=== PATIENT | female | born 1975 | race Caucasian/White ===

== ENCOUNTER 2017-06-20 12:54 | Emergency (ER) | payer BC ==
[~2017-06-20] VITALS: Ht 154.9 cm; Wt 56.0 kg
[~2017-06-20 12:54] MED LIST: BENA25TA3 PO; FAMO20TA2 PO; MEDR4PAK PO; PRED20 PO; [UNRECOGNIZED DRUG - CODE] PO
[2017-06-20] MEDS ORDERED: IOHEXOL 350 MG/ML 10 ML VIAL (for RAD DIAG) IVCONTRAST ONE (12:55)
[2017-06-20 12:56] VITALS: BP 139/85; PULSE 82; RESP 18; TEMP 98.5; O2SAT 99
--- NOTE | 2017-06-20 13:50 | PD ---
HPI Chief Complaint: Pain: Acute or Chronic Time Seen by Provider: 13:10 Travel History International Travel<30 days: No Contact w/Intl Traveler<30days: No Traveled to known affect area: No History of Present Illness HPI 42-year-old female presents to emergency department complaining of right lower quadrant pain radiating to the front and rear aspect of the leg since Saturday. Patient describes the radiation of her pain to the front of the leg as "warmth" . Patient says the pain is 9 out of 10 without any alleviating or provocative factors. Patient denies fever or chills, nausea, vomiting, diarrhea. Patient states that her appetite has been decreased today because of the pain. States her last bowel movement was this morning and was normal. States her last menstrual period was 2 years ago after endometrial ablation was performed. Patient denies back pain or urinary discomfort. Denies vaginal discharge. Patient states that she has had this pain for approximately 1 year and is usually resolved with Advil. Patient states that Advil has not been relieving her pain is concerned about something more serious. Patient says that she saw her primary care 1 year ago and she referred her to an dictating machine transcriber. States that an ultrasound was performed and was found to have an ovarian cyst. Patient denies chronic medical issues or medication use. PFSH Past Medical History LMP: n/a Social History Alcohol Use: No (RARE) Tobacco Use: No Substance Use: No Allergies-Medications (Allergen,Severity, Reaction): Coded Allergies: No Known Allergies (Verified Allergy, Unknown, 06/20/17) Reported Meds & Prescriptions Reported Meds & Active Scripts Active Benadryl Allergy (Diphenhydramine HCl) 25 Mg Tab 25 Mg PO Q6H 3 Days Famotidine 20 Mg Tab 20 Mg PO BID Medrol Dosepak (Methylprednisolone) 4 Mg Dspk 4 Mg PO DIRECTED Per Pharmacist direction Reported Prednisone 20 Mg Tab 40 Mg PO DAILY Solodyn (Minocycline HCl) 65 Mg Tab 65 Mg PO DAILY Review of Systems Except as stated in HPI: all other systems reviewed are Neg Physical Exam Narrative GENERAL: Well-developed well-nourished in no apparent distress. Ambulatory SKIN: Focused skin assessment warm/dry. HEAD: Atraumatic. Normocephalic. EYES: Pupils equal and round. No scleral icterus. No injection or drainage. ENT: No nasal bleeding or discharge. Mucous membranes pink and moist. NECK: Trachea midline. No JVD. CARDIOVASCULAR: Regular rate and rhythm. No murmur appreciated. RESPIRATORY: No accessory muscle use. Clear to auscultation. Breath sounds equal bilaterally. GASTROINTESTINAL: Abdomen soft, nondistended. Right lower quadrant tenderness palpation without rebound tenderness. No guarding. No masses. MUSCULOSKELETAL: No obvious deformities. No clubbing. No cyanosis. No edema. NEUROLOGICAL: Awake and alert. No obvious cranial nerve deficits. Motor grossly within normal limits. Normal speech. PSYCHIATRIC: Appropriate mood and affect; insight and judgment normal. Data Data Last Documented VS Vital Signs Date Time Temp Pulse Resp B/P (MAP) Pulse Ox O2 Delivery O2 Flow Rate FiO2 06/20/17 18:23 06/20/17 12:56 98.5 82 18 99 Room Air Orders Orders Complete Blood Count With Diff (06/20/17 13:34) Comprehensive Metabolic Panel (06/20/17 13:34) Urinalysis - C+S If Indicated (06/20/17 13:34) Us Pelvis Comp W Doppler (06/20/17 13:34) Ed Urine Pregnancytest Poc (06/20/17 13:34) Ct Abd/Pel W Iv Contrast(Rout) (06/20/17 ) Ketorolac Inj (Toradol Inj) (06/20/17 16:45) Wet Prep Profile (06/20/17 16:48) Gc And Chlamydia Pcr (06/20/17 16:48) Iohexol 350 Inj (Omnipaque 350 Inj) (06/20/17 12:55) Ed Discharge Order (06/20/17 18:16) Labs Laboratory Tests Test 06/20/17 13:45 06/20/17 17:30 White Blood Count 11.9 TH/MM3 Red Blood Count 4.93 MIL/MM3 Hemoglobin 14.5 GM/DL Hematocrit 43.6 % Mean Corpuscular Volume 88.5 FL Mean Corpuscular Hemoglobin 29.4 PG Mean Corpuscular Hemoglobin Concent 33.2 % Red Cell Distribution Width 13.6 % Platelet Count 377 TH/MM3 Mean Platelet Volume 6.9 FL Neutrophils (%) (Auto) 80.8 % Lymphocytes (%) (Auto) 12.5 % Monocytes (%) (Auto) 5.3 % Eosinophils (%) (Auto) 0.9 % Basophils (%) (Auto) 0.5 % Neutrophils # (Auto) 9.6 TH/MM3 Lymphocytes # (Auto) 1.5 TH/MM3 Monocytes # (Auto) 0.6 TH/MM3 Eosinophils # (Auto) 0.1 TH/MM3 Basophils # (Auto) 0.1 TH/MM3 CBC Comment DIFF FINAL Differential Comment Urine Color YELLOW Urine Turbidity HAZY Urine pH 6.0 Urine Specific [place] 1.024 Urine Protein TRACE mg/dL Urine Glucose (UA) NEG mg/dL Urine Ketones NEG mg/dL Urine Occult Blood TRACE Urine Nitrite NEG Urine Bilirubin NEG Urine Urobilinogen LESS THAN 2.0 MG/DL Urine Leukocyte Esterase LARGE Urine RBC 3 /hpf Urine WBC 5 /hpf Urine Squamous Epithelial Cells 6 /hpf Urine Bacteria OCC /hpf Urine Mucus FEW /lpf Microscopic Urinalysis Comment CULT NOT INDICATED Blood Urea Nitrogen 10 MG/DL Creatinine 0.70 MG/DL Random Glucose 107 MG/DL Total Protein 8.1 GM/DL Albumin 4.3 GM/DL Calcium Level 9.1 MG/DL Alkaline Phosphatase 87 U/L Aspartate Amino Transf (AST/SGOT) 17 U/L Alanine Aminotransferase (ALT/SGPT) 23 U/L Total Bilirubin 0.4 MG/DL Sodium Level 139 MEQ/L Potassium Level 3.9 MEQ/L Chloride Level 105 MEQ/L Carbon Dioxide Level 26.5 MEQ/L Anion Gap 8 MEQ/L Estimat Glomerular Filtration Rate 93 ML/MIN Clue Cells (Wet Prep) NONE SEEN Vaginal Trichomonas (Wet Prep) NONE SEEN Vaginal Yeast (Wet Prep) NONE SEEN Chlamydia trachomatis DNA (PCR) NOT DETECTED Neisseria gonorrhoeae DNA (PCR) NOT DETECTED MDM Medical Decision Making Medical Screen Exam Complete: Yes Emergency Medical Condition: Yes Differential Diagnosis Ovarian torsion, appendicitis, peritonitis, urinary tract infection, Narrative Course 42-year-old female presents to emergency department complaining of right lower quadrant pain radiating to the front and rear aspect of the leg since Saturday. Patient describes the radiation of her pain to the front of the leg as "warmth" . Patient says the pain is 9 out of 10 without any alleviating or provocative factors. Patient denies fever or chills, nausea, vomiting, diarrhea. Patient states that her appetite has been decreased today because of the pain. States her last bowel movement was this morning and was normal. States her last menstrual period was 2 years ago after endometrial ablation was performed. Patient denies back pain or urinary discomfort. Denies vaginal discharge. Patient states that she has had this pain for approximately 1 year and is usually resolved with Advil. Patient states that Advil has not been relieving her pain is concerned about something more serious. Patient states she is monogamous. Patient says that she saw her primary care 1 year ago and she referred her to an dictating machine transcriber. States that an ultrasound was performed and was found to have an ovarian cyst. Patient denies chronic medical issues or medication use. Vital signs stable Physical exam consistent with ovarian torsion versus appendicitis. Patient diagnosis and dispo pending as a transfer care to Dr. Denis. Condition: Stable Maria Isabel Madsen Jun 20, 2017 13:50
[2017-06-20 14:06] LABS: AUTOMATED NEUTROPHIL # 9.6 TH/MM3 (1.8-7.7); BASOPHIL # 0.1 TH/MM3 (0-0.2); BASOPHIL % 0.5 % (0.0-2.0); EOSINOPHIL # 0.1 TH/MM3 (0-0.4); EOSINOPHIL % 0.9 % (0.0-4.0); HEMATOCRIT 43.6 % (35.0-46.0); HEMOGLOBIN 14.5 GM/DL (11.6-15.3); LYMPH % 12.5 % (9.0-44.0); LYMPHOCYTE # 1.5 TH/MM3 (1.0-4.8); MEAN CELL VOLUME 88.5 FL (80.0-100.0); MEAN CORPUSCULAR HEMOGLOBIN 29.4 PG (27.0-34.0); MEAN CORPUSCULAR HGB CONC 33.2 % (32.0-36.0); MEAN PLATELET VOLUME 6.9 FL (7.0-11.0); MONO % 5.3 % (0.0-8.0); MONOCYTE # 0.6 TH/MM3 (0-0.9); NEUT % 80.8 % (16.0-70.0); PLATELET COUNT 377 TH/MM3 (150-450); RED BLOOD COUNT 4.93 MIL/MM3 (4.00-5.30); RED CELL DISTRIBUTION WIDTH 13.6 % (11.6-17.2); WHITE BLOOD COUNT 11.9 TH/MM3 (4.0-11.0)
[2017-06-20 14:09] LABS: BACTERIA, URINE OCC /hpf; BILIRUBIN, URINE NEG (NEG); BLOOD, URINE TRACE (NEG); GLUCOSE,URINE NEG (NEG); KETONE, URINE NEG (NEG); MUCUS URINE FEW /lpf (OCC); NITRITE,URINE NEG (NEG); SQUAMOUS EPITHELIAL CELL URINE 6 /hpf (0-5); URINE COLOR YELLOW (YELLW/STRAW); URINE LEUKOCYTE ESTERASE LARGE (NEG)
[2017-06-20 14:19] LABS: ALBUMIN 4.3 GM/DL (3.4-5.0); AST (GOT) 17 U/L (15-37); BICARBONATE 26.5 MEQ/L (21.0-32.0); BLOOD UREA NITROGEN 10 MG/DL (7-18); CALCIUM 9.1 MG/DL (8.5-10.1); CHLORIDE 105 MEQ/L (98-107); GLOMERULAR FILTRATION RATE 93 ML/MIN (>89); GLUCOSE,RANDOM 107 MG/DL (74-106); SODIUM (NA) 139 MEQ/L (136-145)
[2017-06-20 14:22] LABS: ALKALINE PHOSPHATASE 87 U/L (45-117); ALT (GPT) 23 U/L (10-53); TOTAL BILIRUBIN ADULT 0.4 MG/DL (0.2-1.0); TOTAL PROTEIN 8.1 GM/DL (6.4-8.2)
--- NOTE | 2017-06-20 15:20 | RADRPT ---
EXAM DATE/TIME: 06/20/2017 14:44 [facility] COMPARISON: No previous studies available for comparison. [facility] July 18, 2015 INDICATIONS : Pelvic pain. MEDICAL HISTORY : Pelvic pain. SURGICAL HISTORY : Uterine ablation. ENCOUNTER: Subsequent ACUITY: 2 days PAIN SCORE: 8/10 LOCATION: Bilateral pelvis MEASUREMENTS: UTERUS: 9.4 x 6.0 x 4.6 cm ENDOMETRIAL STRIPE: 4 mm RIGHT OVARY: 3.2 x 1.6 x1 .7 cm LEFT OVARY: 3.4 x 3.0 x 1.3 cm FINDINGS: UTERUS: 2 small primarily isoechoic myometrial masses measuring 1.3 x 1.0 x 1.0 cm in the in the fundus and 1 .5 x 1.6 x 1.2 cm near the body. RIGHT OVARY: Ovary contains no mass or significant cystic lesion. Blood flow demonstrated. LEFT OVARY: Ovary contains no mass or significant cystic lesion. Blood flow demonstrated. MISCELLANEOUS: No free fluid. CONCLUSION: 1. Two small myometrial masses consistent with uterine leiomyomas measuring 1.3 x 1.0 x 1.2 cm near t he fundus and 1.5 x 1.6 x 1.2 cm near the body. 2. Normal appearing ovaries bilaterally with intact blood flow. Livan Leone MD on June 20, 2017 at 15:11 Board Certified Radiologist. This report was verified electronically.
[2017-06-20] MEDS ORDERED: KETOROLAC TROMETHAMINE 30 MG/ML (IVP) VIAL IVP ONE (16:45)
--- NOTE | 2017-06-20 17:12 | PD ---
Physical Exam Narrative GENERAL:Well appearing, no acute distress SKIN: Focused skin assessment warm and dry. HEAD: Atraumatic. Normocephalic. EYES: Pupils equal and round. No injection or drainage. ENT: Moist mucous membranes NECK: Trachea midline. CARDIOVASCULAR: Regular rate and rhythm. No murmur appreciated. RESPIRATORY: Clear to auscultation. Breath sounds equal bilaterally. GASTROINTESTINAL: Abdomen soft, tender to palpation in the right lower quadrant with no rebound or guarding. DRY END TESTER: Some scant yellow discharge in the vault with no cervical motion tenderness or adnexal tenderness. MUSCULOSKELETAL: No obvious deformities. NEUROLOGICAL: Awake and alert. No obvious cranial nerve deficits. Moving all extremities. PSYCHIATRIC: Appropriate mood and affect; insight and judgment normal. Data Data Last Documented VS Vital Signs Date Time Temp Pulse Resp B/P (MAP) Pulse Ox O2 Delivery O2 Flow Rate FiO2 06/20/17 12:56 98.5 82 18 139/85 (103) 99 Room Air Orders Orders Complete Blood Count With Diff (06/20/17 13:34) Comprehensive Metabolic Panel (06/20/17 13:34) Urinalysis - C+S If Indicated (06/20/17 13:34) Us Pelvis Comp W Doppler (06/20/17 13:34) Ed Urine Pregnancytest Poc (06/20/17 13:34) Ct Abd/Pel W Iv Contrast(Rout) (06/20/17 ) Ketorolac Inj (Toradol Inj) (06/20/17 16:45) Wet Prep Profile (06/20/17 16:48) Gc And Chlamydia Pcr (06/20/17 16:48) Labs Laboratory Tests Test 06/20/17 13:45 White Blood Count 11.9 TH/MM3 Red Blood Count 4.93 MIL/MM3 Hemoglobin 14.5 GM/DL Hematocrit 43.6 % Mean Corpuscular Volume 88.5 FL Mean Corpuscular Hemoglobin 29.4 PG Mean Corpuscular Hemoglobin Concent 33.2 % Red Cell Distribution Width 13.6 % Platelet Count 377 TH/MM3 Mean Platelet Volume 6.9 FL Neutrophils (%) (Auto) 80.8 % Lymphocytes (%) (Auto) 12.5 % Monocytes (%) (Auto) 5.3 % Eosinophils (%) (Auto) 0.9 % Basophils (%) (Auto) 0.5 % Neutrophils # (Auto) 9.6 TH/MM3 Lymphocytes # (Auto) 1.5 TH/MM3 Monocytes # (Auto) 0.6 TH/MM3 Eosinophils # (Auto) 0.1 TH/MM3 Basophils # (Auto) 0.1 TH/MM3 CBC Comment DIFF FINAL Differential Comment Urine Color YELLOW Urine Turbidity HAZY Urine pH 6.0 Urine Specific [place] 1.024 Urine Protein TRACE mg/dL Urine Glucose (UA) NEG mg/dL Urine Ketones NEG mg/dL Urine Occult Blood TRACE Urine Nitrite NEG Urine Bilirubin NEG Urine Urobilinogen LESS THAN 2.0 MG/DL Urine Leukocyte Esterase LARGE Urine RBC 3 /hpf Urine WBC 5 /hpf Urine Squamous Epithelial Cells 6 /hpf Urine Bacteria OCC /hpf Urine Mucus FEW /lpf Microscopic Urinalysis Comment CULT NOT INDICATED Blood Urea Nitrogen 10 MG/DL Creatinine 0.70 MG/DL Random Glucose 107 MG/DL Total Protein 8.1 GM/DL Albumin 4.3 GM/DL Calcium Level 9.1 MG/DL Alkaline Phosphatase 87 U/L Aspartate Amino Transf (AST/SGOT) 17 U/L Alanine Aminotransferase (ALT/SGPT) 23 U/L Total Bilirubin 0.4 MG/DL Sodium Level 139 MEQ/L Potassium Level 3.9 MEQ/L Chloride Level 105 MEQ/L Carbon Dioxide Level 26.5 MEQ/L Anion Gap 8 MEQ/L Estimat Glomerular Filtration Rate 93 ML/MIN [facility] Supervised Visit with SAJI: Yes Interpretation(s) Mild leukocytosis Electrolytes are reassuring Urinalysis is negative for infection Differential Diagnosis Acute appendicitis, ovarian torsion, ovarian cyst, pelvic inflammatory disease, tubo-ovarian abscess Narrative Course This is a 42-year-old female who presents to the emergency department with right lower quadrant abdominal pain. Pelvic ultrasound was reassuring. Pelvic exam demonstrates some yellow discharge but no pain. Cultures were sent but I wouldn't empirically treat this patient as she has no stated risk factors for PID. CT will be obtained. If reassuring I think the patient can follow-up with her outpatient md allergy immunology. Condition: Stable Lesa Denis MD Jun 20, 2017 17:12
--- NOTE | 2017-06-20 17:41 | RADRPT ---
EXAM DATE/TIME: 06/20/2017 17:02 [facility] COMPARISON: No previous studies available for comparison. INDICATIONS : Right hip and flank pain for three days. IV CONTRAST: 80 cc Omnipaque 350 (iohexol) IV ORAL CONTRAST: No oral contrast ingested. RADIATION DOSE: 6.64 CTDIvol (mGy) MEDICAL HISTORY : None SURGICAL HISTORY : None. ENCOUNTER: Initial ACUITY: 3 days PAIN SCALE: 6/10 LOCATION: Right lower quadrant TECHNIQUE: Volumetric scanning of the abdomen and pelvis was performed. Using automated exposure control and ad justment of the mA and/or kV according to patient size, radiation dose was kept as low as reasonably achievable to obtain optimal diagnostic quality images. DICOM format image data is available electro nically for review and comparison. FINDINGS: LOWER LUNGS: The visualized lower lungs are clear. LIVER: Homogeneous density without lesion. There is no dilation of the biliary tree. No calcified gallston es. SPLEEN: Normal size without lesion. PANCREAS: Within normal limits. KIDNEYS: Normal in size and shape. There is no mass, stone or hydronephrosis. Small subcentimeter cyst in the superior pole the left kidney. ADRENAL GLANDS: Within normal limits. VASCULAR: There is no aortic aneurysm. BOWEL/MESENTERY: The stomach, small bowel, and colon demonstrate no acute abnormality. Appendix is not directly visua lized. However, there is no significant inflammatory change in the right lower quadrant. There is no free intraperitoneal air or fluid. ABDOMINAL WALL: Within normal limits. RETROPERITONEUM: There is no lymphadenopathy. BLADDER: No wall thickening or mass. REPRODUCTIVE: Small approximate 1 cm low-density myometrial masses consistent with findings on ultrasound exam. INGUINAL: There is no lymphadenopathy or hernia. MUSCULOSKELETAL: Within normal limits for patient age. CONCLUSION: 1. No acute CT abnormality to explain patient's, pain. 2. Appendix is not directly visualized. However, no significant inflammatory change in the right lowe r quadrant. 3. Small subcentimeter cyst in the superior pole of the left kidney. 4. Small 1 cm low-density myometrial masses consistent with uterine leiomyomas noted on EXAM. Livan Leone MD on June 20, 2017 at 17:34 Board Certified Radiologist. This report was verified electronically.
--- NOTE | 2017-06-20 18:16 | PD ---
Physical Exam Date Seen by Provider: Jun 20, 2017 Data Data Last Documented VS Vital Signs Date Time Temp Pulse Resp B/P (MAP) Pulse Ox O2 Delivery O2 Flow Rate FiO2 06/20/17 12:56 98.5 82 18 139/85 (103) 99 Room Air Orders Orders Complete Blood Count With Diff (06/20/17 13:34) Comprehensive Metabolic Panel (06/20/17 13:34) Urinalysis - C+S If Indicated (06/20/17 13:34) Us Pelvis Comp W Doppler (06/20/17 13:34) Ed Urine Pregnancytest Poc (06/20/17 13:34) Ct Abd/Pel W Iv Contrast(Rout) (06/20/17 ) Ketorolac Inj (Toradol Inj) (06/20/17 16:45) Wet Prep Profile (06/20/17 16:48) Gc And Chlamydia Pcr (06/20/17 16:48) Iohexol 350 Inj (Omnipaque 350 Inj) (06/20/17 12:55) Labs Laboratory Tests Test 06/20/17 13:45 06/20/17 17:30 White Blood Count 11.9 TH/MM3 Red Blood Count 4.93 MIL/MM3 Hemoglobin 14.5 GM/DL Hematocrit 43.6 % Mean Corpuscular Volume 88.5 FL Mean Corpuscular Hemoglobin 29.4 PG Mean Corpuscular Hemoglobin Concent 33.2 % Red Cell Distribution Width 13.6 % Platelet Count 377 TH/MM3 Mean Platelet Volume 6.9 FL Neutrophils (%) (Auto) 80.8 % Lymphocytes (%) (Auto) 12.5 % Monocytes (%) (Auto) 5.3 % Eosinophils (%) (Auto) 0.9 % Basophils (%) (Auto) 0.5 % Neutrophils # (Auto) 9.6 TH/MM3 Lymphocytes # (Auto) 1.5 TH/MM3 Monocytes # (Auto) 0.6 TH/MM3 Eosinophils # (Auto) 0.1 TH/MM3 Basophils # (Auto) 0.1 TH/MM3 CBC Comment DIFF FINAL Differential Comment Urine Color YELLOW Urine Turbidity HAZY Urine pH 6.0 Urine Specific [place] 1.024 Urine Protein TRACE mg/dL Urine Glucose (UA) NEG mg/dL Urine Ketones NEG mg/dL Urine Occult Blood TRACE Urine Nitrite NEG Urine Bilirubin NEG Urine Urobilinogen LESS THAN 2.0 MG/DL Urine Leukocyte Esterase LARGE Urine RBC 3 /hpf Urine WBC 5 /hpf Urine Squamous Epithelial Cells 6 /hpf Urine Bacteria OCC /hpf Urine Mucus FEW /lpf Microscopic Urinalysis Comment CULT NOT INDICATED Blood Urea Nitrogen 10 MG/DL Creatinine 0.70 MG/DL Random Glucose 107 MG/DL Total Protein 8.1 GM/DL Albumin 4.3 GM/DL Calcium Level 9.1 MG/DL Alkaline Phosphatase 87 U/L Aspartate Amino Transf (AST/SGOT) 17 U/L Alanine Aminotransferase (ALT/SGPT) 23 U/L Total Bilirubin 0.4 MG/DL Sodium Level 139 MEQ/L Potassium Level 3.9 MEQ/L Chloride Level 105 MEQ/L Carbon Dioxide Level 26.5 MEQ/L Anion Gap 8 MEQ/L Estimat Glomerular Filtration Rate 93 ML/MIN Clue Cells (Wet Prep) NONE SEEN Vaginal Trichomonas (Wet Prep) NONE SEEN Vaginal Yeast (Wet Prep) NONE SEEN MDM Medical Record Reviewed: Yes Supervised Visit with SAJI: Yes Interpretation(s) Vital Signs Date Time Temp Pulse Resp B/P (MAP) Pulse Ox O2 Delivery O2 Flow Rate FiO2 06/20/17 12:56 98.5 82 18 139/85 (103) 99 Room Air Laboratory Tests Test 06/20/17 13:45 06/20/17 17:30 White Blood Count 11.9 TH/MM3 (4.0-11.0) Red Blood Count 4.93 MIL/MM3 (4.00-5.30) Hemoglobin 14.5 GM/DL (11.6-15.3) Hematocrit 43.6 % (35.0-46.0) Mean Corpuscular Volume 88.5 FL (80.0-100.0) Mean Corpuscular Hemoglobin 29.4 PG (27.0-34.0) Mean Corpuscular Hemoglobin Concent 33.2 % (32.0-36.0) Red Cell Distribution Width 13.6 % (11.6-17.2) Platelet Count 377 TH/MM3 (150-450) Mean Platelet Volume 6.9 FL (7.0-11.0) Neutrophils (%) (Auto) 80.8 % (16.0-70.0) Lymphocytes (%) (Auto) 12.5 % (9.0-44.0) Monocytes (%) (Auto) 5.3 % (0.0-8.0) Eosinophils (%) (Auto) 0.9 % (0.0-4.0) Basophils (%) (Auto) 0.5 % (0.0-2.0) Neutrophils # (Auto) 9.6 TH/MM3 (1.8-7.7) Lymphocytes # (Auto) 1.5 TH/MM3 (1.0-4.8) Monocytes # (Auto) 0.6 TH/MM3 (0-0.9) Eosinophils # (Auto) 0.1 TH/MM3 (0-0.4) Basophils # (Auto) 0.1 TH/MM3 (0-0.2) CBC Comment DIFF FINAL Differential Comment Urine Color YELLOW (YELLW/STRAW) Urine Turbidity HAZY (CLEAR) Urine pH 6.0 (5.0-8.5) Urine Specific [place] 1.024 (1.002-1.035) Urine Protein TRACE mg/dL (NEG-TRACE) Urine Glucose (UA) NEG mg/dL (NEG) Urine Ketones NEG mg/dL (NEG) Urine Occult Blood TRACE (NEG) Urine Nitrite NEG (NEG) Urine Bilirubin NEG (NEG) Urine Urobilinogen LESS THAN 2.0 MG/DL (LESS Urine Leukocyte Esterase LARGE (NEG) Urine RBC 3 /hpf (0-3) Urine WBC 5 /hpf (0-5) Urine Squamous Epithelial Cells 6 /hpf (0-5) Urine Bacteria OCC /hpf (NONE) Urine Mucus FEW /lpf (OCC) Microscopic Urinalysis Comment CULT NOT INDICATED Blood Urea Nitrogen 10 MG/DL (7-18) Creatinine 0.70 MG/DL (0.50-1.00) Random Glucose 107 MG/DL (74-106) Total Protein 8.1 GM/DL (6.4-8.2) Albumin 4.3 GM/DL (3.4-5.0) Calcium Level 9.1 MG/DL (8.5-10.1) Alkaline Phosphatase 87 U/L (45-117) Aspartate Amino Transf (AST/SGOT) 17 U/L (15-37) Alanine Aminotransferase (ALT/SGPT) 23 U/L (10-53) Total Bilirubin 0.4 MG/DL (0.2-1.0) Sodium Level 139 MEQ/L (136-145) Potassium Level 3.9 MEQ/L (3.5-5.1) Chloride Level 105 MEQ/L (98-107) Carbon Dioxide Level 26.5 MEQ/L (21.0-32.0) Anion Gap 8 MEQ/L (5-15) Estimat Glomerular Filtration Rate 93 ML/MIN (>89) Clue Cells (Wet Prep) NONE SEEN (NONE) Vaginal Trichomonas (Wet Prep) NONE SEEN (NONE) Vaginal Yeast (Wet Prep) NONE SEEN (NONE) Last Impressions Pelvis Ultrasound 06/20/17 1334 Signed Impressions: Service Date/Time: May 14:44 - CONCLUSION: 1. Two small myometrial masses consistent with uterine leiomyomas measuring 1.3 x 1.0 x 1.2 cm near the fundus and 1.5 x 1.6 x 1.2 cm near the body. 2. Normal appearing ovaries bilaterally with intact blood flow. Livan Leone MD Abdomen/Pelvis CT 06/20/17 0000 Signed Impressions: Service Date/Time: May 17:02 - CONCLUSION: 1. No acute CT abnormality to explain patient's, pain. 2. Appendix is not directly visualized. However, no significant inflammatory change in the right lower quadrant. 3. Small subcentimeter cyst in the superior pole of the left kidney. 4. Small 1 cm low-density myometrial masses consistent with uterine leiomyomas noted on EXAM. Livan Leone MD Differential Diagnosis Abdominal pain, gastritis, gastroenteritis, PID, cervicitis, appendicitis, ovarian cyst, ovarian torsion Narrative Course I received this patient in signout, patient currently pending CT the abdomen and pelvis and ultimate disposition. Patient is a 42-year-old female presents to emergency room with complaints of right lower quadrant abdominal pain. She had a pelvic exam performed by previous providers, cultures are obtained, patient requests to follow-up with cultures prior to treatment for possible PID as she reports no risk factors for PID. Last Impressions Pelvis Ultrasound 06/20/17 1334 Signed Impressions: Service Date/Time: May 14:44 - CONCLUSION: 1. Two small myometrial masses consistent with uterine leiomyomas measuring 1.3 x 1.0 x 1.2 cm near the fundus and 1.5 x 1.6 x 1.2 cm near the body. 2. Normal appearing ovaries bilaterally with intact blood flow. Livan Leone MD Abdomen/Pelvis CT 06/20/17 0000 Signed Impressions: Service Date/Time: May 17:02 - CONCLUSION: 1. No acute CT abnormality to explain patient's, pain. 2. Appendix is not directly visualized. However, no significant inflammatory change in the right lower quadrant. 3. Small subcentimeter cyst in the superior pole of the left kidney. 4. Small 1 cm low-density myometrial masses consistent with uterine leiomyomas noted on EXAM. Livan Leone MD Ultrasound of the pelvis shows a uterine leiomyoma as well as small myometrial mass. CT the abdomen pelvis shows no acute abnormalities. The leiomyomas as well as a myometrial mass were identified. Patient is comfortable at this time , abdomen is soft, nontender, nondistended, no peritoneal signs. Reviewed all labs and all studies with patient in detail as well as all incidental findings. Patient will follow-up with her customer supply chain analyst as well as a retail store manager, she will return to emergency room as needed. Diagnosis Primary Impression: Abdominal pain Additional Impressions: myometrial mass Leiomyoma Referrals: Mamadou Saldivar MD Patient Instructions: General Instructions Additional Instruction: Please provide patient with a copy of their lab work and studies at discharge* * Please follow up with your primary care doctor in 2-3 days Return to the ER if symptoms worsen or progress Return to the ER as needed Please follow up with your customer supply chain analyst as well as a retail store manager as soon as possible Please follow-up with all cultures from today Med/Other Pt SpecificInfo: Prescription(s) given Disposition: 01 DISCHARGE HOME Condition: Stable Tamara Best DO Jun 20, 2017 18:16
== END 2017-06-20 18:49 | disposition home or self-care (01) ==
LOC: NEPK 12:54 → NEPD 18:49
DX: R10.31 Right lower quadrant pain (principal); D25.9 Leiomyoma of uterus, unspecified; N85.8 Other specified noninflammatory disorders of uterus; N83.201 Unspecified ovarian cyst, right side
CPT/HCPCS: 74177; 76856; 80053; 81001; 84703; 85025; 87210; 87491; 87591; 93975; 96374; 99285; J1885; Q9967